=== PATIENT | male | born 1990 | race Caucasian/White ===

== ENCOUNTER 2017-07-10 09:55 | Emergency (ER) | payer SELFPAY ==
[2017-07-10 10:11] VITALS: BP 138/96
--- NOTE | 2017-07-10 10:49 | ED ---
Skin Complaint - HPI Summary HPI Summary: Patient presents to the ED with request for suture removal to the R forearm. He sustained an injury at work 6 days ago from glass. I saw him in the ED 6 days ago and plaed 7 sutures. He returns today with clean, dry sutures. Denies complaints. Has been cleaning with hydrogen peroxide. Small amount of leakage between 2 of the sutures per patient. Denies fevers, sweats or chills. - History of Current Complaint Chief Complaint: EDLacSutureRecheck Time Seen by Provider: 07/10/17 10:08 Stated Complaint: STICHES NEED TO BE REMOVED Hx Obtained From: Patient Onset/Duration: Started Hours Ago Skin Exposure Onset/Duration: Hours Ago Timing: Constant Onset Severity: Moderate Current Severity: Moderate Pain Intensity: 0 Skin Location: Arm Aggravating Symptom(s): Nothing Alleviating Symptom(s): Nothing Associated Signs & Symptoms: Negative Related History: Trauma - Allergy/Home Medications Allergies/Adverse Reactions: Allergies Allergy/AdvReac Type Severity Reaction Status Date / Time No Known Allergies Allergy Verified 07/10/17 10:11 PMH/Surg Hx/FS Hx/Imm Hx Previously Healthy: Yes - Immunization History Hx Pertussis Vaccination: No Immunizations Up to Date: Unable to Obtain/Confirm Infectious Disease History: No Infectious Disease History: Denies: Traveled Outside the [place] in Last 30 Days - Social History Occupation: Employed Full-time Lives: With Family Alcohol Use: Occasionally Hx Substance Use: No Substance Use Type: Reports: None Hx Tobacco Use: No Smoking Status (MU): Never Smoked Tobacco Review of Systems Constitutional: Negative Negative: Fever, Chills, Fatigue Eyes: Negative Cardiovascular: Negative Respiratory: Negative Genitourinary: Negative Positive: no symptoms reported, see HPI Musculoskeletal: Negative Positive: Other Neurological: Negative All Other Systems Reviewed And Are Negative: Yes Physical Exam Triage Information Reviewed: Yes Vital Signs On Initial Exam: Initial Vitals Temp Pulse Resp BP Pulse Ox 98.7 F 68 16 138/96 98 07/10/17 10:08 07/10/17 10:08 07/10/17 10:08 07/10/17 10:08 07/10/17 10:08 Vital Signs Reviewed: Yes Appearance: Positive: Well-Appearing, Well-Nourished Skin: Positive: Skin Color Reflects Adequate Perfusion, Other - suture removal Head/Face: Positive: Normal Head/Face Inspection Eyes: Positive: EOMI, HUBER, Conjunctiva Clear Neck: Positive: Supple, No Lymphadenopathy Respiratory/Lung Sounds: Positive: Clear to Auscultation Cardiovascular: Positive: Normal, RRR, Pulses are Symmetrical in both Upper and Lower Extremities Musculoskeletal: Positive: Strength/ROM Intact Neurological: Positive: Speech Normal Psychiatric: Positive: Normal Diagnostics - Vital Signs Vital Signs Temp Pulse Resp BP Pulse Ox 07/10/17 10:08 98.7 F 68 16 138/96 98 - Laboratory Lab Statement: Any lab studies that have been ordered have been reviewed, and results considered in the medical decision making process. Course/Dx - Course Course Of Treatment: 7 sutures removed. patient tolerated well. 4 steri strips placed over 1 small .5cm location not completely appropriated with skin closure. he will leave on 2-3 days and keep covered while at work. Return precuations, care instructions/instructions given. Patient voices understanding and has no concerns at this time. Vital signs reveiwed prior to discharge and are WNL. - Diagnoses Provider Diagnoses: Encounter for removal of sutures Discharge - Discharge Plan Condition: Stable Disposition: HOME Patient Education Materials: Stitches Removal (ED) Referrals: No Primary Care Phys,NOPCP [Primary Care Provider] -
== END 2017-07-10 10:50 | disposition home or self-care (01) ==
LOC: ED 09:55
DX: Z48.02 Encounter for removal of sutures (principal); S51.811D Laceration without foreign body of right forearm, subsequent encounter; W25.XXXD Contact with sharp glass, subsequent encounter

== ENCOUNTER 2018-04-16 08:15 | Emergency (ER) | payer BC, OTHER ==
[2018-04-16 08:25] VITALS: BP 121/78
[2018-04-16] MEDS ORDERED: Ketorolac INJ* 60 MG/2 ML VIAL IM ONE (08:43)
--- NOTE | 2018-04-16 08:52 | UC ---
Shoulder Pain HPI - HPI Summary HPI Summary: Patient slipped in muddy yard 4 days ago and ever since has pain on right shoulder non responsive to motrin or naproxen. Patient states pain is 5-6 baseline but goes to 9-10/10 when attempting to do his usual chores. Pain radiates to arm, neck and right side of his trunk. Denies numbness. - History of Current Complaint Chief Complaint: UCUpperExtremity Stated Complaint: SHOULDER INJURY Time Seen by Provider: 04/16/18 08:36 Hx Obtained From: Patient Severity Initially: Moderate Severity Currently: Severe Pain Intensity: 8 Character: Sharp, Dull, Aching Aggravating Factor(s): Movement, Lifting Alleviating Factor(s): Rest Associated Signs And Symptoms: Positive: Negative - Risk Factors Non-Orthopedic Risk Factor: Negative DVT Risk Factors: Negative Septic Arthritis Risk Factor: Negative - Allergies/Home Medications Allergies/Adverse Reactions: Allergies Allergy/AdvReac Type Severity Reaction Status Date / Time No Known Allergies Allergy Verified 04/16/18 08:25 Home Medications: Home Medications Ibuprofen TAB* [Advil TAB*] 200 mg PO Q6H PRN 04/16/18 [History Confirmed ] Naproxen Sodium [Aleve] 1 tab PO DAILY PRN 04/16/18 [History Confirmed 04/16/18] PMH/Surg Hx/FS Hx/Imm Hx Previously Healthy: Yes - Surgical History Surgical History: Yes Surgery Procedure, Year, and Place: appendectomy - Family History Known Family History: Positive: Hypertension - Social History Alcohol Use: Daily Alcohol Amount: 2-3 beers Substance Use Type: None Smoking Status (MU): Never Smoked Tobacco Review of Systems Constitutional: Negative Skin: Negative Eyes: Negative ENT: Negative Respiratory: Negative Neurovascular: Negative Musculoskeletal: Arthralgia, Myalgia All Other Systems Reviewed And Are Negative: Yes Physical Exam Triage Information Reviewed: Yes Appearance: Well-Appearing, Well-Nourished, Pain Distress Vital Signs: Initial Vital Signs Temp 98.3 F 04/16/18 08:20 Pulse 71 04/16/18 08:20 Resp 16 04/16/18 08:20 BP 121/78 04/16/18 08:20 Pulse Ox 100 04/16/18 08:20 Vital Signs Reviewed: Yes Eyes: Positive: Conjunctiva Clear ENT: Positive: Hearing grossly normal Neck: Positive: Supple, No Lymphadenopathy, Tenderness @ - right SCM Respiratory: Positive: Chest non-tender, Lungs clear, Normal breath sounds Cardiovascular: Positive: Pulses Normal, Brisk Capillary Refill Abdomen Description: Positive: Nontender Bowel Sounds: Positive: Present Musculoskeletal: Positive: Strength Intact, No Edema, ROM Limited @ - anterior and lateral elevation beyond 70degrees, Hawkings positive, empty can positive Shoulder Course/Dx - Course Course Of Treatment: xray shoulder shows no acute disease. Referred to PT once pain is controlled. f/u with PCP. Take medications as prescribed, continue naproxen, referred to [facility] care. - Differential Dx/Diagnosis Provider Diagnoses: right shoulder pain Discharge - Sign-Out/Discharge Documenting (check all that apply): Patient Departure - Discharge Plan Condition: Good Disposition: HOME Referrals: No Primary Care Phys,NOPCP [Primary Care Provider] - Additional Instructions: please call [facility] for Primary care referral and to start Physical therapy [phone] - Billing Disposition and Condition Condition: GOOD Disposition: Home
--- NOTE | 2018-04-16 09:14 | RAD ---
HISTORY: fall on right shoulder COMPARISONS: None VIEWS: 4, Frontal internal rotation, external rotation, outlet, and axillary views of the right shoulder FINDINGS: BONE DENSITY: Normal. BONES: There is no displaced fracture. JOINTS: There is no arthropathy. ALIGNMENT: There is no dislocation. SOFT TISSUES: Unremarkable. OTHER FINDINGS: None. IMPRESSION: NO ACUTE OSSEOUS INJURY. IF SYMPTOMS PERSIST, RECOMMEND REPEAT IMAGING.
== END 2018-04-16 09:50 | disposition home or self-care (01) ==
LOC: UCEAST 08:15
DX: M25.511 Pain in right shoulder (principal)
CPT/HCPCS: 96372; 99213; G0463; J1885